=== PATIENT | female | born 1980 | race Caucasian/White ===

== ENCOUNTER 2020-05-13 11:48 | Emergency (ER) | payer OTHER, SELFPAY ==
[2020-05-13 12:11] VITALS: BP 110/72; PULSE 77; RESP 16; O2SAT 100; BMI 28.1
--- NOTE | 2020-05-13 12:36 | DI.CT.S_ITS ---
PROCEDURE: CT HEAD/BRAIN WO CON INDICATIONS: head injury TECHNIQUE: Noncontrast 4.5 mm thick angled axial sections acquired from the foramen magnum to the vertex, with coronal and sagittal reformats. For radiation dose reduction, the following was used: automated exposure control, adjustment of mA and/or kV according to patient size. COMPARISON: None. FINDINGS: Image quality: Excellent. CSF spaces: Basal cisterns are patent. No extra-axial fluid collections. Ventricles are normal in size and shape. Brain: No midline shift. No intracranial masses or hemorrhage. Nolan-white matter interface is normal. Skull and face: A left forehead hematoma can be seen. No underlying calvarial fracture is seen. Calvarium and visualized facial bones are intact, without suspicious lesions. Sinuses: Visualized sinuses and mastoids are clear. IMPRESSION: No acute intracranial process is seen. No acute intracranial hemorrhage is seen. Left forehead hematoma, without an underlying calvarial fracture. Dictated by: Eron Hameed M.D. on 05/13/2020 at 11:52 Approved by: Eron Hameed M.D. on 05/13/2020 at 11:52
[2020-05-13 15:17] VITALS: BP 115/72; PULSE 65; RESP 16; O2SAT 100
--- NOTE | 2020-05-13 19:47 | PC.NURSE ---
called pt to see how she was, she is good taken tylenol at home. reminded pt to look for signs and symptoms for infection and to use antibiotics ointment this evening.
--- NOTE | 2020-05-13 20:25 | ED.HEATRA ---
HPI - Head Injury <Hardeep ShortSAYRA caryP - Last Filed: 05/14/20 03:32> General Chief complaint: Head Injury Stated complaint: fell off ladder Time Seen by Provider: 05/13/20 14:59 Source: patient Mode of arrival: Ambulatory Limitations: no limitations History of Present Illness HPI Narrative: This is a 39 year female, nonsmoker, who has noncontributing medical history presents to ED with her with chief complain of left side forehead swelling and pain after she slipped and fell off 2 steps of a ladder and landed on a concrete. Patient denies chest pain, breathing difficulty, or dizziness prior fall. She denies loss of consciousness, vision change, vomiting, mid cervical tenderness. She reports bilateral neck pain with rotation movement where she usually has some discomfort and sees chiropractor regularly. Patient denies tingling/numbness/weakness to upper extremities. Patient's last tetanus immunization was updated 2017. Related Data Home Medications Medication Instructions Recorded Confirmed cholecalciferol (vitamin D3) 50,000 unit PO QWEEK #0 08/27/16 multivitamin [Multiple Vitamins] 1 tab PO QDAY #0 08/27/16 sertraline 100 mg PO QDAY #0 08/27/16 Allergies Allergy/AdvReac Type Severity Reaction Status Date / Time No Known Allergies Allergy Uncoded 12/29/17 12:40 Review of Systems <Hardeep ShortSAYRA caryP - Last Filed: 05/14/20 03:32> Review of Systems Narrative: General: Denies fever, chills, fatigue, malaise, sweats. HEENT: Denies sinus pain, ear pain, sore throat, difficulty swallowing, dizziness. Respiratory: Denies dyspnea, cough, wheezing, hemoptysis, sputum. Cardiovascular: Denies chest pain, palpitations, orthopnea, edema. Gastrointestinal: Denies nausea, vomiting, abdominal pain, diarrhea, constipation, melena. : Denies dysuria, frequency, incontinence, hematuria, urinary retention. Musculoskeletal: Denies weakness, joint pain or bony pain. Skin: See HPI Neurologic: See HPI Psychiatric: No concerning psychosocial issues. 12-point review of systems is negative except for those stated above. Patient History <Hardeep HamiltonSAYRA [facility] Last Filed: 05/14/20 03:32> Medical History No significant past medical history (Acute) Surgical History No pertinent past surgical history (Acute) Social History Smoking Status: Never smoker Smoking Status: Never smoker alcohol intake frequency: a few times a week Substance Use Type: does not use Exam <ANU Bustamante - Last Filed: 05/14/20 03:32> Narrative Exam Narrative: GEN: Alert, oriented x 3, well appearing and nourished, and in no acute distress. Head: Left side forehead with small hematoma and light ecchymosis. No step-off. EYES: Pupils are equal, round, and reactive to light and accommodation. Extraocular muscles are intact bilaterally. There is no subconjunctival hemorrhage, exudate and sclera non-icteric. ENT: Bilateral auditory canals and tympanic membranes clear without drainage or hemotympanum. Hearing grossly intact. Nose without bleeding, purulent discharge or deviation. Facial sinuses nontender to palpate. Mucous membrane moist, no mucosal lesion. Throat without erythema, tonsillar hypertrophy or exudate. Uvula in midline, airway patent. Neck: Trachea in midline. No JVD, non-tender without lymphadenopathy. No masses or thyroid megaly. Supple, non-tender in mid cervical region and no meningeal signs. Bilateral paraspinous tenderness with rotation of the neck. CARDIAC: Normal regular rate and rhythm without murmurs, gallops, or rubs. No chest wall tenderness. No peripheral edema, cyanosis or pallor. Capillary refill is less than 2 seconds. RESPIRATORY: Lungs are clear to auscultate bilaterally. No cough, wheezes, rales, or rhonchi. No stridor, respiratory distress, increase work of breathing, or accessary muscle used. ABD: Abdomen soft, nontender and non-distended. No guarding or rebound tenderness to palpate. Bowel sounds are normal in all 4 quadrants. There is no palpable masses or organomegaly. EXT: Full painless ROM of all extremities with no loss of sensation, strength, effusion or edema. SKIN: Warm, dry, normal color for patient. No erythema, lesions or rash over visible areas. BACK: Nontender without deformity or crepitance. No flank tenderness. NEUROLOGICAL: Alert and oriented to place, time and person. Sensation and motor function intact bilaterally. No facial droops, dysphasia. PSYCHIATRIC: Good judgement and reason, without hallucinations, abnormal affect or abnormal behaviors during the examination. Patient is not suicidal. Initial Vital Signs Initial Vital Signs: Vital Signs Pulse Rate 77 05/13/20 12:11 Respiratory Rate 16 05/13/20 12:11 Blood Pressure 110/72 05/13/20 12:11 Pulse Oximetry 100 05/13/20 12:11 <Tiff Ackerman MD - Last Filed: 05/14/20 18:53> Initial Vital Signs Initial Vital Signs: Vital Signs Pulse Rate 77 05/13/20 12:11 Respiratory Rate 16 05/13/20 12:11 Blood Pressure 110/72 05/13/20 12:11 Pulse Oximetry 100 05/13/20 12:11 Scores <ANU Bustamante - Last Filed: 05/14/20 03:32> GCS [place] coma scale eye opening: Spontaneous [place] coma scale verbal response: Orientated Ash coma scale motor response: Obey commands Ash coma scale total score: 15 Nexus Score for C-Spine Focal Neurologic deficit present: No Midline spinal tenderness present: No Altered level of conciousness present: No Intoxication present: No Distracting Injury Present: Yes Nexus Criteria for C-spine: 1 Course <SAYRA BustamanteP - Last Filed: 05/14/20 03:32> Orders Ordered: Discontinued Medications Acetaminophen (Tylenol) 650 mg PO NOW ONE Stop: 05/13/20 15:23 Bacitracin (Bacitracin) 1 applic TOP NOW ONE Stop: 05/13/20 15:23 Ibuprofen (Advil) 400 mg PO NOW ONE Stop: 05/13/20 15:23 Vital Signs Vital signs: Vital Signs - 8 hr 05/13/20 15:17 Pulse Rate 65 Respiratory Rate 16 Blood Pressure 115/72 Pulse Oximetry 100 <Tiff Ackerman MD - Last Filed: 05/14/20 18:53> Orders Ordered: Discontinued Medications Acetaminophen (Tylenol) 650 mg PO NOW ONE Stop: 05/13/20 15:23 Bacitracin (Bacitracin) 1 applic TOP NOW ONE Stop: 05/13/20 15:23 Ibuprofen (Advil) 400 mg PO NOW ONE Stop: 05/13/20 15:23 Vital Signs Vital signs: Vital Signs - 8 hr 05/13/20 15:17 Pulse Rate 65 Respiratory Rate 16 Blood Pressure 115/72 Pulse Oximetry 100 [facility] - Head Injury <Hardeep ANU Duckworth - Last Filed: 05/14/20 03:32> Differential Diagnosis Differential diagnosis: Likely concussion without loss of consciousness, closed head injury and other (Intracranial hemorrhage, neck strain) Medical Records Attestation: I reviewed the patient's medical records. Imaging Data CT scan - head: Radiologist's Impression: [address] [address] [address] Scan Report Signed Patient: Ivett Gaines LMR#: [id number] : 1980Acct:[id number] Age/Sex: 39 / FDate of Service: 05/13/20 Loc: ED Accession Number: [id number] Procedure: CT head/brain wo con Ordering Provider: Tiff Ackerman MD PROCEDURE: CT HEAD/BRAIN WO CON INDICATIONS: head injury TECHNIQUE: Noncontrast 4.5 mm thick angled axial sections acquired from the foramen magnum to the vertex, with coronal and sagittal reformats. For radiation dose reduction, the following was used: automated exposure control, adjustment of mA and/or kV according to patient size. COMPARISON: None. FINDINGS: Image quality: Excellent. CSF spaces: Basal cisterns are patent. No extra-axial fluid collections. Ventricles are normal in size and shape. Brain: No midline shift. No intracranial masses or hemorrhage. Nolan-white matter interface is normal. Skull and face: A left forehead hematoma can be seen. No underlying calvarial fracture is seen. Calvarium and visualized facial bones are intact, without suspicious lesions. Sinuses: Visualized sinuses and mastoids are clear. IMPRESSION: No acute intracranial process is seen. No acute intracranial hemorrhage is seen. Left forehead hematoma, without an underlying calvarial fracture. Dictated by: Eron Hameed M.D. on 05/13/2020 at 11:52 Approved by: Eron Hameed M.D. on 05/13/2020 at 11:52 [facility] Narrative Medical decision making narrative: 39-year-old female who has accidentally slipped from a ladder and fell off 2 steps on hit her left side forehead on the ground. Normal neuro exam and patient denies losing consciousness, vomiting, or vision change after the injury. CT test without acute findings but hematoma on left forehead was appreciated. Patient advised to do wound care with soap and water with antibiotic ointment and gauze. Advised to use cool pack on affected site and to use [id number] Tylenol or Motrin as needed for discomfort and swelling. Return precautions were discussed including closed head injury and signs and symptoms for infection to monitor with patient and patient verbalized understanding and agreement with treatment plan. Discharge Plan Departure Patient Disposition: Home Clinical Impression: Closed head injury Qualifiers: Encounter type: initial encounter Qualified Code(s): S09.90XA - Unspecified injury of head, initial encounter Neck muscle strain Qualifiers: Encounter type: initial encounter Qualified Code(s): S16.1XXA - Strain of muscle, fascia and tendon at neck level, initial encounter Fall Qualifiers: Encounter type: initial encounter Qualified Code(s): W19.XXXA - Unspecified fall, initial encounter Discharge Date/Time: 05/13/20 16:13 Instructions: DI for Contusion, DI for Closed Head Injury, DI for Neck Pain Activity Restrictions/Additional Instructions: You have been diagnosed with [closed head injury and contusion to forehead and neck strain from a fall.]. What to do: *Take your medications as directed. You can take [id number] Tylenol and or Motrin as needed for discomfort. You can take Tylenol 650-1000 mg as needed up to 3 to 4 times a day. Ibuprofen 400 mg up to 3 to 4 times a day as needed for pain with food to decrease GI irritation. Use cool pack on forehead for swelling and discomfort *Follow up with your primary care provider in 2-3 days, call for an appointment. Let them know you were seen in the ED and that we asked you to be seen in follow up. *Return to ED if you have any new, worsening, or concerning symptoms, such as [chest pain, breathing difficulty, unable to tolerate fluids, vision change, weakness, seizure activities, unusual behavior or any acute concerns.]. Prescriptions: No Action multivitamin [Multiple Vitamins] 1 EACH tablet 1 tab PO QDAY Qty: 0 RF: 0 sertraline 100 MG tablet 100 mg PO QDAY Qty: 0 RF: 0 cholecalciferol (vitamin D3) 50,000 UNIT capsule 50,000 unit PO QWEEK Qty: 0 RF: 0 Referrals: Rahcel Goetz PA-C [Primary Care Provider] - <Tiff Ackerman MD - Last Filed: 05/14/20 18:53> Cosign ED Attending Cosignature Attestation: I was immediately available in the department for consultation throughout this patient's visit. I agree with documentation as above. Tiff Ackerman MD
== END 2020-05-13 16:13 | disposition home or self-care (01) ==
PROVIDERS: Emergency Provider Nurse Practitioner Family; PCP Student in an Organized Health Care Education/Training Program
DX: S09.90XA Unspecified injury of head, initial encounter (principal); S16.1XXA Strain of muscle, fascia and tendon at neck level, initial encounter; W19.XXXA Unspecified fall, initial encounter
CPT/HCPCS: 70450; 99283; 99284

== ENCOUNTER → 2023-01-27 14:57 | Outpatient (CLI) | payer OTHER, SELFPAY ==
--- NOTE | 2023-01-27 15:02 | DI.RAD.S_ITS ---
PROCEDURE: XR LUMBAR SPINE 2-3V INDICATIONS: CHRONIC BACK PAIN TECHNIQUE: 3 views of the lumbar spine were acquired. COMPARISON: None. FINDINGS: Bones: 5 [id number] vertebrae are present. There is straightening of normal lumbar lordosis. Degenerative endplate changes are seen at L4-5 and L5-S1 levels. No vertebral body compression fractures. No suspicious bony lesions. Soft tissues: Overlying bowel gas pattern is normal. No suspicious soft tissue calcifications. IMPRESSION: Degenerative disc disease at L4-5 and L5-S1 levels. No acute compression fracture or spondylolisthesis. Dictated by: Raphael Kim M.D. on 01/27/2023 at 16:51 Approved by: Raphael Kim M.D. on 01/27/2023 at 16:51
== END ==
PROVIDERS: PCP Student in an Organized Health Care Education/Training Program; Referring Provider Student in an Organized Health Care Education/Training Program; Visit Provider Student in an Organized Health Care Education/Training Program
DX: M51.36 Other intervertebral disc degeneration, lumbar region (principal); M51.37 Other intervertebral disc degeneration, lumbosacral region; M54.50 Low back pain, unspecified
CPT/HCPCS: 72100